=== PATIENT | male | born 1940 | race Caucasian/White ===

== ENCOUNTER 2022-10-18 05:54 | Emergency (ER) | payer OTHER ==
[2022-10-18] MEDS ORDERED: Oxymetazoline HCl 0.05% (30 ML BOT) ONE (06:43)
== END 2022-10-18 07:34 | disposition home or self-care (01) ==
LOC: ERS 05:54
DX: R04.0 Epistaxis (principal); E11.9 Type 2 diabetes mellitus without complications; E78.5 Hyperlipidemia, unspecified; F17.210 Nicotine dependence, cigarettes, uncomplicated; Z86.73 Personal history of transient ischemic attack (TIA), and cerebral infarction without residual deficits
CPT/HCPCS: 99283

== ENCOUNTER 2022-12-20 15:05 | Outpatient (CLI) | payer MEDICARE | END 2022-12-20 15:06 | disposition home or self-care (01) | LOC: ULT 15:05 | PROVIDERS: ATTEND Specialist | DX: I65.29 Occlusion and stenosis of unspecified carotid artery (principal) | CPT/HCPCS: 93880 ==